=== PATIENT | male | born 1995 | race Caucasian/White ===

== ENCOUNTER 2016-11-24 00:09 | Inpatient (IN) | payer OTHER ==
--- NOTE | ~2016-11-24 | A ---
[facility] Nutrition Therapy DATE: 11/25/16 Patient: CRIS OCHOA Physician: AFAIRF Address: [address] [place] [address] Room/Bed: [address], [facility], Zip: [place] [address] Admit Date: 11/24/16 Date of : [birth year] Height: 6 2 Weight: [id number] NUTRITIONAL ASSESSMENT: REASON: 1 point malnutrition risk score for unintentional weight loss Admitting Dx: 21 y/o male admitted with depression and SI PMH: PSA, 1 ppd smoker, Bipolar disorder, liver disorder with shunt Anthropometrics: Ht: 74", Wt: 152 lbs, BMI: 190 lbs, 80% IBW, BMI: 19 Labs: Glucose 119 Meds: Mag-Al, Milk of Mg, psych meds noted I/O & Bowel function: No issues Assessment: Chart reviewed, events noted. Patient is disabled due to mental illness, living with mother and sister. 1 point scored on malnutrition risk score for unintentional weight loss, however the patient reports no change in weight during the needs assessment. He does report poor appetite upon admission, appetite now fair. Past weight of 175 lbs on 05/14/15 shows possible weight loss of 23 lbs (13% body weight) in the past 1.5 years if weights are correct. He is on a regular diet, MD ordered large portion entrees but not documented on cardex. RD added to cardex and will notify [facility] staff to send larger portions. See RD recs below. Dx: Predicted suboptimal energy intake r/t mentall illness, depression, SI AEB poor-fair appetite, 80% IBW, suspected 13% body weight loss in last 1.5 years. Intervention: Large portion entrees Monitoring, Evaluation and Goals: 1. Adequate oral intake > 50% of meals. 2. Prevent unintentional weight loss. Recommendations: 1. Continue regular diet, encourage oral intake and provide snacks prn. Will send large portion entree at lunch and dinner per MD order. 2. If PO intake is < 50% of meals please order Ensure Plus BID (available in chocolate or vanilla, requires MD order). [facility] Nutrition Therapy DATE: 11/25/16 Patient: CRIS OCHOA Physician: AFAIRF Address: [address] Room/Bed: [facility] [place], [facility], Zip: [place] [address] Admit Date: 11/24/16 Date of : [birth year] Height: 6 2 Weight: [phone] 3. Please weigh q 3 days for monitoring purposes. 4. Please consult RD with any further nutritional needs. Mild nutrition risk Respectfully, Marce Torres, ROSEANN, LD [facility] cc: client file
--- NOTE | ~2016-11-24 | HP ---
Unit #: [id number] #: [id number] Patient: CRIS OCHOA [id number] [place] [address] [id number] MR#: [id number] NAME: CRIS OCHOA ROOM: P131 Age: 21 Sex: M Admission Date: 11/24/2016 : 1995 Attending Physician: Melia Tomas M.D. Admitting Physician: Melia Tomas M.D. Primary Care Physician: No Primary Care Physician HISTORY AND PHYSICAL HISTORY OF PRESENT ILLNESS The patient is a 21-year-old male admitted to [facility] on 11/24/2016 for suicidal ideation. PAST MEDICAL HISTORY 1. Liver disorder. 2. (1) liver. PAST SURGICAL HISTORY 1. Liver shunt. 2. Right arm surgery. SOCIAL HISTORY The patient is disabled. He smokes one pack of cigarettes daily. He smokes two joints per day. He has intermittent drug use. FAMILY HISTORY Noncontributory. ALLERGIES No known drug allergies. CURRENT MEDICATIONS 1. Geodon. 2. Lamictal. REVIEW OF SYSTEMS CONSTITUTIONAL: No fever or chills. HEENT: Denies any sore throat, ear pain or runny nose. CARDIOVASCULAR: Denies chest pain, irregular heart rhythm or palpitations. CHEST: Denies shortness of breath or cough. No hemoptysis. GASTROINTESTINAL: Denies nausea, vomiting, diarrhea or chronic constipation. ENDOCRINE: Denies history of increased thirst or urination. No recent significant weight loss or gain. GENITOURINARY: Denies dysuria, frequency, or hematuria. SKIN: Denies any rashes. HEMATOLOGIC: Denies history of increased bleeding or bruising. MUSCULOSKELETAL: Denies any hot, swollen joints. No generalized muscle pain. NEUROLOGIC: Denies problems with vision or speech. No frequent, severe headaches. No numbness, tingling or weakness in any extremities. Denies loss of bladder or bowel control. Unit #: [id number] #: [id number] Patient: CRIS OCHOA PHYSICAL EXAMINATION GENERAL: The patient is awake, alert and oriented, in no acute distress. VITAL SIGNS: Temperature 98.4, heart rate 110, respiratory rate 16, blood pressure 127/85, height 6'2". WEIGHT: 162 pounds. SKIN: Warm and dry without rash or lesion. HEENT: Normocephalic. TMs not viewed. Oral and nasal passages clear. Conjunctivae clear. PERRLA. EOMs intact. NECK: Supple without lymphadenopathy or thyromegaly. HEART: Regular rate and rhythm without murmur. LUNGS: Clear. ABDOMEN: Soft, nontender. : Not done. EXTREMITIES: No evidence of cyanosis, clubbing or edema. Moves all without focal deficit. NEUROLOGICAL: Grossly within normal limits. Cranial Nerves: II: Visual silverman are intact. III, IV AND : Extraocular movements are intact. Pupils are equal, round and reactive to light. V: Facial sensation is grossly normal. VII: Facial movements and expression are normal. VIII: Auditory acuity grossly intact. IX, X: Uvula is midline. Phonation is normal. XI: Patient shrugs shoulders and turns head normally. XII: Tongue protrudes in the midline. Sensory and Motor Function: Sensory and motor sensation is grossly normal. Motor: moves all extremities well. ASSESSMENT 1. Psychiatric admission. 2. Liver disorder. 3. Polysubstance abuse. 4. Nicotine dependence. RECOMMENDATION Psychiatric: Per psychiatrist. Medical: No contraindications to participate in facility activities. MEDICAL PROGNOSIS Good. MEDICAL CONDITION Stable. Dictated by... Laureano Moeller TD: 11/25/2016 08:41 JOB #: [id number] Unit #: [id number] #: [id number] Patient: CRIS OCHOA HISTORY AND PHYSICAL X YADI LI APRN X HISTORY AND PHYSICAL
--- NOTE | ~2016-11-24 | PA ---
Unit #: [id number] #: [id number] Patient: CRIS OCHOA [id number] [facility] [address] [place] [address] [id number] MR#: [id number] NAME: CRIS OCHOA ROOM: P131 Age: 21 Sex: M Admission Date: 11/24/2016 : 1995 Date of Assessment: Attending Physician: Melia Tomas M.D. Admitting Physician: Melia Tomas M.D. Primary Care Physician: Primary Care Physician No PSYCHIATRIC ASSESSMENT DATE OF SERVICE 11/24/2016. IDENTIFYING DATA Mr. Ochoa is a 21-year-old single white male, who is a resident of [place], [place], and was transferred to us accompanied by his mother. CHIEF COMPLAINT "I have extreme anxiety, I have bipolar, I have severe social anxiety, I cannot sleep." HISTORY OF PRESENT ILLNESS Mr. Ochoa is a 21-year-old white male, who was brought to the hospital by his mother reporting bipolar disorder and decompensating with increasing depression, anxiety, irritability, restlessness, mood disturbance, racing thoughts, and suicidal ideation with a plan to hang himself. He reports that the present and his ex-boyfriend committing suicide on 11/20/2016 and the patient's mother stated "he has been having a nervous breakdown the past few days." Mother reports that the patient asked her to bring him to the emergency department for help because he could not wait until the next week and reports that he receives disability for mental health issues and has been diagnosed and treated for mood disorder and more recently, has been decompensating with increasing depression, anxiety, and feelings of hopelessness and suicidal ideation. SUBSTANCE ABUSE HISTORY The patient has a history of alcohol, cannabis, cocaine, opioids, inhalants, and amphetamine abuse, though more recently he reports that he has not been using any drugs except cannabis occasionally. PAST PSYCHIATRIC HISTORY The patient has had a history of multiple inpatient psychiatric hospitalizations including being at the [facility], where he has been twice and [facility], where he has been three times, in addition to being at [facility] [place] and has had ongoing outpatient psychiatric treatment. Review of the medical records indicate that he has been diagnosed and treated for bipolar disorder and is currently on Geodon and Lamictal, but does not feel the medication has been controlling his anxiety. PAST MEDICAL HISTORY No acute or chronic medical illnesses. Unit #: [id number] #: [id number] Patient: CRIS OCHOA ALLERGIES No known medication allergies. PERSONAL AND SOCIAL HISTORY A 21-year-old white male, who reports that he is single and lives at home with his sister and [id number] and his mother and has fairly decent social support system. MENTAL STATUS EXAMINATION Young white male, who was casually dressed with a fair personal hygiene, appears to be in no acute distress or discomfort. He was awake and alert on interaction with intact orientation to time, place, and person. His mood was anxious and depressed with a congruent affect. His speech was slow and goal directed. He reports having suicidal ideations, but denies any homicidal ideations and also denies any auditory or visual hallucinations. His insight and judgment remain significantly impaired. DIAGNOSTIC IMPRESSION Psychiatric: Bipolar disorder, most recent episode depressed, recurrent, moderate, without psychotic features and generalized anxiety disorder. Medical: None. Stressors: Moderate psychosocial stressors. TREATMENT PLAN 1. The patient has presented with a history of mood disorder and has been decompensating and will need inpatient hospitalization for safety and stabilization. We will start him back on his home medications and we will adjust the medications and monitor response. 2. Supportive therapy was provided to the patient. 3. Safe, structured, and nourishing environment will be provided. ESTIMATED LENGTH OF STAY 5 to 7 days. ABILITY TO HELP SELF Limited. WILLINGNESS TO HELP SELF The patient appears to be willing to help self. STRENGTHS 1. Communicative. 2. Cooperative. PROBLEMS 1. Chronic dysphoric symptoms. 2. Poor social support system. DISCHARGE CRITERIA This will be contingent upon the patient's ability to show resolution of his depression and anxiety as well as his ability to stay safe to himself and others, particularly after discharge from the hospital. Dictated by... Esvin Biggs/taral Unit #: [id number] #: [id number] Patient: CRIS OCHOA TD: 11/24/2016 16:14 JOB #: [id number] PSYCHIATRIC ASSESSMENT X Melia Tomas MD PSYCHIATRIC ASSESSMENT
--- NOTE | ~2016-11-24 | PN ---
Unit #: [id number] #: [id number] Patient: RCIS OCHOA [id number] [facility] [address] [place] [address] [id number] MR#: [id number] NAME: CRIS OCHOA ROOM: P131 Age: 21 Sex: M Admission Date: 11/24/2016 : 1995 Attending Physician: Melia Tomas M.D. Admitting Physician: Melia Tomas M.D. Primary Care Physician: Primary Care Physician Paz WEBSTER PROGRESS NOTES DATE OF SERVICE: 11/25/2016 SUBJECTIVE Mr. Ochoa is a 21-year-old white male who was seen today and chart was reviewed, and case was discussed with the staff. He has been anxious, withdrawn, and rather seclusive to himself. Meanwhile, he has been cooperative with treatment recommendations and has been taking the medications and tolerating them fairly well. MENTAL STATUS EXAMINATION Young white male who was casually dressed with fair personal hygiene, appears to be in no acute distress or discomfort. He was awake and alert on interaction with intact orientation. His mood was anxious and depressed with a congruent affect. His speech was slow and goal directed. He denies any current suicidal or homicidal ideations. His insight and judgment remain slightly impaired. TREATMENT PLAN 1. We will continue him on his current medications and treatment protocol. We will monitor his response to medications and make further adjustments as needed. 2. We will continue to follow up. Dictated by... Esvin Biggs/samuel TD: 11/27/2016 07:25 JOB #: [id number] [facility] PROGRESS NOTES X Melia Tomas MD PROGRESS NOTE
--- NOTE | ~2016-11-24 | PN ---
Unit #: [id number] #: [id number] Patient: CRIS OCHOA [id number] [facility] [address] [place] [address] [id number] MR#: [id number] NAME: CRIS OCHOA ROOM: P131 Age: 21 Sex: M Admission Date: 11/24/2016 : 1995 Attending Physician: Melia Tomas M.D. Admitting Physician: Melia Tomas M.D. Primary Care Physician: Primary Care Physician Paz POSADAS NOTES DATE OF SERVICE: 11/26/2016 SUBJECTIVE Mr. Ochoa is a 21-year-old white male who was seen today and chart was reviewed, and case was discussed with the staff and he has been doing fairly well and has been reporting improvement in his depression and anxiety, and has been cooperative with treatment recommendations and has been taking the medications and tolerating them fairly well. MENTAL STATUS EXAMINATION Young white male, who was casually dressed with fair personal hygiene, appears to be in no acute distress or discomfort. He was awake and alert on interaction with intact orientation. His mood was anxious with a congruent affect. He denies any suicidal or homicidal ideations, and also denies any auditory or visual hallucinations. His insight and judgment remain slightly impaired. TREATMENT PLAN 1. We will continue on his current medications and treatment protocol. We will monitor his response and make further adjustments as needed. 2. We will continue to follow up. Dictated by... Esvin Biggs/samuel TD: 11/28/2016 07:13 JOB #: [id number] [facility] PROGRESS NOTES X Melia Tomas MD PROGRESS NOTE
--- NOTE | ~2016-11-24 | DS ---
Unit #: [id number] #: [id number] [facility] [id number] [facility] [address] [place] [address] [id number] I MR#: [id number] NAME: CRIS OCHOA ROOM: P131 Age: 21 Sex: M Admission Date: 11/24/2016 : 1995 Discharge Date: 11/27/2016 Attending Physician: Melia Tomas M.D. Primary Care Physician: Primary Care Physician No DISCHARGE SUMMARY IDENTIFYING DATA Mr. Ochoa is a 21-year-old single white male, who is a resident of [place], [place], and was transferred to us accompanied by his mother. DISCHARGE DIAGNOSES Psychiatric: Bipolar disorder, most recent episode depressed, recurrent, moderate, without psychotic features; generalized anxiety disorder. Medical: None. Stressors: Moderate psychosocial stressors. HISTORY OF PRESENT ILLNESS Please see initial psychiatric evaluation for details. PAST PSYCHIATRIC HISTORY Please see initial psychiatric evaluation for details. PAST MEDICAL HISTORY Please see initial psychiatric evaluation for details. HOSPITAL COURSE The patient was admitted to the adult psychiatric unit at [facility] [place] and was oriented to the hospital environment. Routine p.r.n. medications were initiated, and he was started on a combination of Geodon and Lamictal and was closely monitored. He was taking the medications regularly and though initially was seen to be anxious, withdrawn, he was able to start showing a therapeutic response with improvement in anxiety and depressive symptoms and was wanting to go home and was denying any suicidal ideations, intent, or plan and was willing to continue treatment on an outpatient basis and as such, it was decided that he will be discharged home and will continue treatment on an outpatient basis. DISCHARGE MEDICATIONS Geodon 80 mg in the evening for bipolar, and Lamictal 50 mg in the evening for bipolar. DISCHARGE CONDITION Stable. PROGNOSIS Fair. Dictated by... Melia Tomas M.D. Unit #: [id number] #: [id number] Patient: CRIS OCHOA IAA/modl TD: 11/28/2016 00:25 JOB #: [id number] DISCHARGE SUMMARY X Melia Tomas MD DISCHARGE SUMMARY
[2016-11-25 12:40] LABS: BASOPHIL% 0.7 % (0-2.5); EOSINOPHIL# 0.1 X10e3 (0-0.7); EOSINOPHIL% 3.5 % (0.0-7.0); HEMATOCRIT 47.5 % (38.0-50.0); LYMPHOCYTE# 1.3 X10e3 (1.0-3.5); LYMPHOCYTE% 31.4 % (17.0-45.0); MEAN CELL VOLUME 88.9 FL (83-96); MEAN CORPUSCULAR HEMOGLOBIN 29.9 PG (28-34); MEAN CORPUSCULAR HGB CONC 33.7 g/dL (30-36); MEAN PLATELET VOLUME 8.3 FL (6.5-11.5); MONOCYTE# 0.3 X10e3 (0-1.0); MONOCYTE% 7.4 % (3.0-12.0); NEUTROPHIL# 2.4 X10e3 (1.5-7.1); RED BLOOD COUNT 5.34 X10e (3.90-5.60); RED CELL DISTRIBUTION WIDTH 13.2 % (11.0-15.5); WHITE BLOOD COUNT 4.2 X10e3 (4.0-10.5)
[2016-11-25 12:58] LABS: DIFF IND YES; PLATELET COUNT 91 X10e3 (140-420)
[2016-11-25 13:02] LABS: THYROID STIMULATING HORMONE 0.91 uIU/ml (0.34-5.60)
[2016-11-25 13:03] LABS: PLATELET ESTIMATE DECREASED (NORMAL)
[2016-11-25 13:04] LABS: RBC NORMAL YES
[2016-11-25 13:09] LABS: FREE THYROXIN (T4) 1.07 ng/dL (0.58-1.64)
[2016-11-25 13:21] LABS: ALBUMIN SERUM 4.8 g/dL (3.5-5.0); ALKALINE PHOSPHATASE 37 U/L (32-92); ALT (SGPT) 17 U/L (10-40); AST (SGOT) 21 U/L (10-42); BILIRUBIN,TOTAL 1.1 mg/dL (0.2-2.0); BLOOD UREA NITROGEN 14 mg/dL (9-23); BUN/CREATININE RATIO 12.72; CALCIUM SERUM 9.7 mg/dL (8.4-10.2); CARBON DIOXIDE 28 mmol/L (22-31); CHLORIDE 104 mmol/L (100-111); CREATININE SERUM 1.1 mg/dL (0.6-1.4); GLOM FILT RATE Estimated ABOVE60 mL/min (>60); GLUCOSE FASTING 119 mg/dL (70-110); PROTEIN TOTAL SERUM 7.1 g/dL (6.0-8.3); SODIUM 141 mmol/L (135-145)
== END 2016-11-27 17:37 | disposition home or self-care (01) | DRG 885 ==
LOC: P1S 00:09
PROVIDERS: Psychiatry & Neurology Psychiatry
DX: F31.32 Bipolar disorder, current episode depressed, moderate (principal); R45.851 Suicidal ideations; F41.1 Generalized anxiety disorder; F17.210 Nicotine dependence, cigarettes, uncomplicated; K76.9 Liver disease, unspecified; F19.10 Other psychoactive substance abuse, uncomplicated
CPT/HCPCS: 80053; 84439; 84443; 85025